=== PATIENT | male | born 2000 | race Caucasian/White ===

== ENCOUNTER 2021-01-14 12:50 | Emergency (ER) | payer OTHER ==
[~2021-01-14] VITALS: Ht 177.8 cm; Wt 98.0 kg
[2021-01-14 12:55] VITALS: BP 151/96
[2021-01-14] MEDS: LORazepam 1 MG TABLET PO ONE (13:41)
--- NOTE | 2021-01-14 13:47 | PHYS DOC ---
Past History Past Medical History: Other Additional Past Medical Histor: COVID history (ZEUS DUMONT APRN) Past Surgical History: No Surgical History (ZEUS DUMONT APRN) Alcohol Use: Occasionally (ZEUS DUMONT APRN) Adult General Chief Complaint Chief Complaint: MULTIPLE COMPLAINTS HPI HPI Patient is a 20-year-old male presents to the emergency department complaining of off-and-on lightheadedness, off and on "weird sensations in my left arm since being diagnosed with the COVID-19 virus in late November 2020. Patient states "I f eel like I am having an anxiety attack and I need something for anxiety ", patient denies headaches, visual disturbances, dizziness, shortness of breath, chest pain, abdominal pain, nausea, vomiting, or diarrhea. Patient denies any chest congestion or nasal congestion. Patient denies any loss of taste or loss of smell. Patient currently denies any lightheadedness. 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 Patient states he has a appointment with his primary care physician Zeus Culver on January 29, 2021. Patient denies any other physical complaints or physical concerns. Patient denies cigarette smoking, denies illicit drug use, denies EtOH consumption. (ZEUS DUMONT APRN) Review of Systems Review of Systems 14 body systems of review of systems have been reviewed. See HPI for pertinent positives and negative responses, otherwise all other systems are negative, nonpertinent or noncontributory. (ZEUS DUMONT APRN) Current Medications Current Medications Current Medications Medications (Trade) Dose Ordered Sig/Desi Start Time Stop Time Status Last Admin Dose Admin Lorazepam (Ativan) 1 mg 1X ONCE 01/14/21 13:45 01/14/21 13:46 UNV (EZUS DUMONT APRN) Allergies Allergies Allergies Coded Allergies Type Severity Reaction Last Updated Verified No Known Drug Allergies 01/14/21 No (ZEUS DUMONT APRN) Physical Exam Physical Exam Constitutional: Well developed, well nourished, no acute distress, non-toxic appearance. 20-year-old male in no apparent distress. HENT: Normocephalic, atraumatic, bilateral external ears normal, oropharynx moist, no oral exudates, nose normal. Oropharynx pink, moist, no deep tissue infectious process appreciated, no drooling, no trismus, no lymphadenopathy of the head or neck appreciated. Eyes: PERRLA, EOMI, conjunctiva normal, no discharge. Pupils 4 mm. Neck: Normal range of motion, no tenderness, supple, no stridor. No meningismus signs, no nuchal rigidity. Cardiovascular:Heart rate regular rhythm, no murmur, heart sounds S1-S2 to auscultation. Lungs & Thorax: Bilateral breath sounds clear to auscultation, no adventitious lung sounds appreciated. Abdomen: Bowel sounds normal, soft, no tenderness, no masses, no pulsatile masses. Small lipoma-like mass appreciated left upper quadrant. No infectious process appreciated. No areas of ecchymosis or bruising to the abdomen. Skin: Warm, dry, no erythema, no rash. Back: No tenderness, no CVA tenderness. 2 small lipoma-like masses appreciated in the mid back/torso area just right of spinal column. No infectious process is appreciated. Extremities: No tenderness, no cyanosis, no clubbing, ROM intact, no edema., +2/4 pulses, distal cap refill less than 2 seconds. Neurologic: Alert and oriented X 3, normal motor function, normal sensory function, no focal deficits noted. Patient became anxious during physical examination. Psychologic: Affect normal, judgement normal, mood normal. (ZEUS DUMONT APRN) Current Patient Data Vital Signs Vital Signs Date Time Temp Pulse Resp B/P (MAP) Pulse Ox O2 Delivery O2 Flow Rate FiO2 01/14/21 12:55 98.0 88 151/96 (114) 99 Room Air 01/14/21 12:50 20 (ZEUS DUMONT APRN) EKG EKG EKG performed at 1337 by house respiratory therapy staff shows a normal sinus rhythm without ectopy with a heart rate of 91 bpm, OR interval 0.156, QTc interval 0.410, no acute STEMI, no ACS, no acute ischemia appreciated, EKG interpreted by ED attending physician Dr. Bazzi. (ZEUS DUMONT APRN) Radiology/Procedures Radiology/Procedures [] (ZEUS DUMONT APRN) Heart Score C/O Chest Pain: No HEART Score for Chest Pain: HEART Score for Chest Pain Response (Comments) Value History Slighlty/Non-Suspicious 0 ECG Normal 0 Age < 45 0 Risk Factors No Risk Factors 0 Troponin < Normal Limit 0 Total 0 Risk Factors: Risk Factors: DM, Current or recent (<one month) smoker, HTN, HLP, family history of CAD, obesity. Risk Scores: Risk Factors: DM, Current or recent (<one month) smoker, HTN, HLP, family history of CAD, obesity. (ZEUS DUMONT APRN) Course & Med Decision Making Course & Med Decision Making Pertinent Labs and Imaging studies reviewed. (See chart for details) 20-year-old male, vital signs reviewed, presents emergency department with complaints of ongoing lightheadedness and left arm "weird sensations "since testing positive for the COVID-19 virus and late November. Physical examination was unremarkable, patient did become anxious during physical examination, will order CBC, BMP, troponin I, EKG related to left arm complaints, patient currently denies lightheadedness. Will give 1 mg p.o. Ativan for anxiety complaints. Pending labs at this time. Serum labs unremarkable, patient heart score equals 0, EKG unremarkable. Discussed findings with patient, upon reevaluation of the patient, patient states he is feeling much better since receiving the anxiety medication. The patient is asking for a prescription for anxiety medicine for home. Discussed with patient that emergency departments do not manage ongoing anxiety medications for patients. Discussed with patient to follow-up with primary care physician and keep appointment coming up soon and discussed with primary care physician about starting on anxiety medications. Patient gave verbal understanding of discharge home instructions, keeping follow-up appointment coming soon with primary care physician, return to ER precautions and concerns, patient had no further questions or concerns and was discharged home without incident. (ZEUS DUMONT APRN) Dragon Disclaimer Dragon Disclaimer This electronic medical record was generated, in whole or in part, using a voice recognition dictation system. (ZEUS DUMONT APRN) Departure Departure: Impression: Primary Impression: Anxiety Disposition: HOME / SELF CARE / HOMELESS Condition: GOOD Referrals: NON,STAFF (PCP) Patient Instructions: Anxiety and Panic Attacks Additional Instructions: You are seen today in the emergency department for complaints of anxiety and physical complaints associated with anxiety, your serum lab work and EKG were negative for any concerning findings. You did state you are feeling better since taking the anxiety medication that was offered in the emergency department today. As we discussed, please follow-up with your primary care physician and let him know about your concerns about anxiety and the medication that helped you today in the emergency department, you are given 1 mg of Ativan by mouth. Your primary care physician may consider starting you on a regimen for anxiety. Please return to the emergency department for worsening symptoms or other concerns. EMERGENCY DEPARTMENT GENERAL DISCHARGE INSTRUCTIONS Thank you for coming to [facility] (ED) today and trusting us with you care. We trust that you had a positivie experience in our Emergency Department. If you wish to speak to the department management, you may call the director at [phone]. YOUR FOLLOW UP INSTRUCTIONS ARE FOLLOWS: 1. Do you have a private Doctor? If you do not have a private doctor, please ask for a resource list of physicians or clinics that may be able to assist you with follow up care. 2. The Emergency Physician has interpreted your x-rays. The X-Ray specialist will also review them. If there is a change in the findings, you will be notified in 48 hours when at all possible. 3. A lab test or culture has been done, your results will be reviewed and you will be notified if you need a change in treatment. ADDITIONAL INSTRUCTIONS AND INFORMATION: 1. Your care today has been supervised by a physician who is specially trained in emergency care. Many problems require more than one evaluation for a complete diagnosis and treatment. We recommend that you schedule your follow up appointment as recommended to ensure complete treatment of you illness or injury. If you are unable to obtain follow up care and continue to have a problem, or if your condition worsens, we recommend that you return to the ED. 2. We are not able to safely determine your condition over the phone nor are we able to give sound medical advice over the phone. For these safety reasons, if you call for medical advice we will ask you to come to the ED for further evaluation. 3. If you have any questions regarding these discharge instructions please call the ED at [phone]. SAFETY INFORMATION: In the interest of safety, wellness, and injury prevention; we encourage you to wear your sealbelt, if you smoke; quite smoking, and we encourage family to use a protective helmet for bicycling and other sporting events that present an increased risk for head injury. IF YOUR SYMPTOMS WORSEN OR NEW SYMPTOMS DEVELOP, OR YOU HAVE CONCERNS ABOUT YOUR CONDITION; OR IF YOUR CONDITION WORSENS WHILE YOU ARE WAITING FOR YOUR FOLLOW UP APPOINTMENT; EITHER CONTACT YOUR PRIMARY CARE DOCTOR, THE PHYSICIAN WHOSE NAME AND NUMBER YOU WERE GIVEN, OR RETURN TO THE ED IMMEDIATELY. Attending Signature Attending Signature I have reviewed the PA/LARRY CAR OPERATOR's note and plan of care. I was available for consul tation as needed during the patient's visit in the emergency department. I agree with the clinical impression, plan, and disposition. (ZEUS BAZZI DO) ZEUS DUMONT APRN January 14, 2021 13:47 ZEUS BAZZI DO January 15, 2021 06:13
[2021-01-14 13:58] LABS: BASO % 0 % (0-3); EOS % 0 % (0-3); HEMATOCRIT 50.2 % (39.0-53.0); HEMOGLOBIN 17.7 g/dL (13.0-17.5); LYMPH # 1.2 x10^3/uL (1.0-4.8); LYMPH % 18 % (24-48); MEAN CORPUSCULAR HEMOGLOBIN 31 pg (25-35); MEAN CORPUSCULAR HGB CONC 35 g/dL (31-37); MEAN CORPUSCULAR VOLUME 89 fL (79-100); MONO # 0.4 x10^3/uL (0.0-1.1); MONO % 6 % (0-9); NEUT # 4.9 x10^3uL (1.8-7.7); NEUT % 75 % (31-73); PLATELET COUNT 214 x10^3/uL (140-400); RED BLOOD COUNT 5.64 x10^6/uL (4.30-5.70); RED CELL DISTRIBUTION WIDTH 12.5 % (11.5-14.5); WHITE BLOOD COUNT 6.5 x10^3/uL (4.0-11.0)
--- NOTE | 2021-01-14 13:59 | EKG ---
[address] [address] Test Date: 2021-01-14 Test Time: 13:37:49 Pat Name: JACKIE ARGUETA Department: Room: Gender: M Certified Wellness Program Manager: YOANA : 2000 Requested By: ZEUS DUMONT Order Number: [id number] Reading MD: Measurements Intervals [place] Rate: 91 P: 52 NM: 156 QRS: 95 QRSD: 88 T: 25 QT: 332 QTc: 410 Interpretive Statements SINUS RHYTHM RIGHTWARD AXIS OTHERWISE NORMAL ECG RI6.02 No previous ECG available for comparison
[2021-01-14 14:12] LABS: CALCIUM 9.5 mg/dL (8.5-10.1); CREATININE 1.1 mg/dL (0.7-1.3); GFR 83.7
== END 2021-01-14 15:20 | disposition home or self-care (01) ==
LOC: ER 12:50
DX: F41.9 Anxiety disorder, unspecified (principal); R42 Dizziness and giddiness; Z86.16 Personal history of COVID-19
CPT/HCPCS: 36415; 80048; 84484; 85025; 93005; 99284